=== PATIENT | male | born 1955 | race Caucasian/White ===

== ENCOUNTER 2023-06-20 09:46 | Emergency (ER) | payer MEDICAID ==
[~2023-06-20] VITALS: Ht 172.7 cm; Wt 99.8 kg
[2023-06-20 10:21] VITALS: BP_SYST 138; PULSE 94; RESP 18; TEMP 97.7; O2SAT 98
[2023-06-20 10:43] LABS: BILIRUBIN,URINE NEGATIVE (NEGATIVE); BLOOD, URINE NEGATIVE (NEGATIVE); CLARITY/URINE CLEAR (CLEAR); COLOR,URINE YELLOW (YELLOW); GLUCOSE,URINE 3+ (NEGATIVE); KETONES,URINE NEGATIVE (NEGATIVE); LEUKOCYTE ESTERASE ,URINE NEGATIVE (NEGATIVE); NITRITE, URINE NEGATIVE (NEGATIVE); PROTEIN URINE NEGATIVE (NEGATIVE); UROBILINOGEN,URINE 0.2 (0.2-1.0)
[2023-06-20 10:51] LABS: BACTERIA,URINE None Seen /HPF (None Seen); MUCUS,URINE None Seen /LPF (None Seen); RBC,URINE 0-3 /HPF (0-3); WBC,URINE 0-3 /HPF (0-3)
[2023-06-20] MEDS ORDERED: KETOROLAC TROMETHAMINE 60 MG/2 ML VIAL IM ONE (11:00)
[2023-06-20 11:06] LABS: BASOPHILS % (AUTO) 0.4 % (0.0-2.0); EOSINOPHILS # (AUTO) 0.2 K/uL (0.0-0.4); EOSINOPHILS % (AUTO) 2.5 % (0.0-4.0); LYMPHOCYTES # (AUTO) 0.9 K/uL (1.0-5.5); LYMPHOCYTES % (AUTO) 11.9 % (20.5-51.5); MEAN CORPUSCULAR HEMOGLOBIN 26 pg (27-31); MEAN CORPUSCULAR HGB CONC 32 % (32-36); MEAN CORPUSCULAR VOLUME 82 fL (79.0-98.0); MONOCYTES # (AUTO) 0.7 K/uL (0.0-1.0); MONOCYTES % (AUTO) 9.9 % (1.7-9.3); NEUTROPHILS # (AUTO) 5.7 K/uL (1.8-7.7); NEUTROPHILS % (AUTO) 75.3 % (40.0-70.0); PLATELET COUNT (AUTO) 234 K/uL (130-430); RED BLOOD CELL COUNT(AUTO) 5.36 MIL/uL (4.2-6.2); RED CELL DISTRIBUTION WIDTH 15.6 % (9.0-15.0); WHITE BLOOD COUNT (AUTO) 7.5 K/uL (4.8-10.8)
[2023-06-20 11:23] LABS: ALBUMIN 3.3 g/dL (3.4-4.8); CALCIUM 8.7 mg/dL (8.4-11.0); CREATININE 0.99 mg/dL (0.55-1.30); POTASSIUM 3.8 mmol/L (3.5-5.1); TOTAL BILIRUBIN 0.5 mg/dL (0.0-1.0); TOTAL PROTEIN, SERUM 6.9 g/dL (6.4-8.3)
[2023-06-20] MEDS ORDERED: HYDROcodone/ACETAMIN 5-325 MG TAB (NORCO/ VICODIN) PO ONE (13:15)
[2023-06-20] MEDS ORDERED: TRAM50TA2 PO (13:40)
[2023-06-20] MEDS ORDERED: IBUP-1971 PO (13:40)
[2023-06-20 13:55] VITALS: BP_SYST 130; PULSE 90; RESP 19; TEMP 97.1; O2SAT 98
== END 2023-06-20 13:55 | disposition home or self-care (01) ==
LOC: SED 09:46
DX: K80.50 Calculus of bile duct without cholangitis or cholecystitis without obstruction (principal); R10.9 Unspecified abdominal pain; R07.81 Pleurodynia; Z79.899 Other long term (current) drug therapy
CPT/HCPCS: 99285; 74176; 71045; 80053; 81001; 82150; 83690; 85025; 36415; 76376; 96372; 83605; 82397; 81000; 81015; J1885

== ENCOUNTER 2023-06-21 14:05 | Emergency (ER) | payer MEDICAID ==
[~2023-06-21] VITALS: Ht 170.2 cm; Wt 99.8 kg
[2023-06-21 14:05] VITALS: BP_SYST 131; PULSE 80; RESP 18; TEMP 97.9; O2SAT 96
[~2023-06-21 14:05] MED LIST: IBUP-1971 PO; TRAM50TA2 PO
== END 2023-06-21 20:20 | disposition left against medical advice (07) ==
LOC: SED 14:05
DX: M54.50 Low back pain, unspecified (principal); Z53.21 Procedure and treatment not carried out due to patient leaving prior to being seen by health care provider
CPT/HCPCS: 99281